=== PATIENT | male | born 1955 | race Caucasian/White ===

== ENCOUNTER 2019-01-31 22:05 | Inpatient (IN) | payer OTHER ==
--- NOTE | 2019-01-31 23:17 | PDOC ---
Attending Attestation - Resident Resident Name: LainezHernando - ED Attending Attestation I have performed the following: I have examined & evaluated the patient, The case was reviewed & discussed with the resident, I agree w/resident's findings & plan - HPI HPI: 02/01/19 02:04 see resident hpi - Physicial Exam PE: 02/01/19 02:04 agree with resident exam - Medical Decision Making 02/01/19 02:05 63-year-old male with upper abdominal pain Ultrasound of the gallbladder shows distention with a gallbladder neck stone as well as wall thickening Patient is a mild leukocytosis Zosyn 3.375 g given in the emergency department Plan for admission to medical service with surgical consult
[2019-01-31] MEDS ORDERED: FAMOTIDINE 20 MG/50 ML IVPB 20 MG/50 ML MG IVPB ONE (23:48)
[2019-01-31] MEDS ORDERED: MAG HYDROX/AL HYDROX/SIMETH -MYLANTA- ORAL SUSPENSION PO ONE (23:49)
[2019-02-01] MEDS ORDERED: MAG HYDROX/AL HYDROX/SIMETH 30 ML UNIT-DOSE CUP ONE (01:08)
[2019-02-01] MEDS ORDERED: FAMOTIDINE 20 MG/50 ML IVPB 20 MG/50 ML MG IVPB ONE (01:08)
[2019-02-01 01:27] LABS: BASO % 0.9 % (0-2.0); EOS % 0.6 % (0-4.5); HEMATOCRIT 41.2 % (35.4-49); HEMOGLOBIN 13.6 GM/dL (11.7-16.9); LYMPH % 12.8 % (8-40); MCH 28.8 pg (25.7-33.7); MCHC 32.9 g/dl (32.0-35.9); MEAN CELL VOLUME 87.6 fl (80-96); MEAN PLT VOLUME 9.3 fl (7.5-11.1); MONO % 7.8 % (3.8-10.2); NEUT % 77.9 % (42.8-82.8); PLATELET COUNT 349 K/MM3 (134-434); RDW 15.5 % (11.9-15.9); WHITE BLOOD COUNT 13.2 K/mm3 (4.0-10.0)
[2019-02-01] MEDS ORDERED: PIPERACILLIN/TAZOB 3.375 GM 3.375 GM in DEXTROSE 5%-WATER - 50 ML IVPB ONE (01:44)
--- NOTE | 2019-02-01 01:45 | PDOC ---
History of Present Illness - General Chief Complaint: Pain Stated Complaint: ABDOMINAL PAIN Time Seen by Provider: 01/31/19 22:59 History Source: Patient, Skiver Blockers Used (OLED-T # [id number]) Exam Limitations: Language Barrier - History of Present Illness Initial Comments: HPI: 63 y/o male presenting to [facility] ER complaining of upper abdominal pain radiating to right flank. Symptoms started around 5pm this afternoon. Unable to describe the nature of the pain. Reports it moves up into his chest but denies metallic taste in mouth. No relief or change with PO intake. Denies nausea/vomiting. Endorses normal BM. No h/o of similar. Medical Hx: - HTN - S/p prostate surgery 6 months ago - ED on [facility] Review of Systems: In addition to that documented in the HPI above, the additional ROS was obtained : Constitutional- Denies fevers or chills Head- Denies vision changes ENMT- Denies sore throat CV- Denies chest pain Resp- Denies SOB GI- Denies vomiting or diarrhea - Denies painful urination MSK- Denies recent trauma Skin- Denies new rashes Neuro- Denies new numbness or tingling or weakness Endocrine- Denies polyuria Heme- Denies bleeding or bruising Physical Examination: Constitutional- Well-developed, well-nourished adult in no acute distress but mild obvious discomfort. Found semi-fowlers on hospital bed. Answered all questions appropriately and completely. Head- Normocephalic. No obvious external signs of trauma. Eyes- Sclerae white. Cardiovascular / Chest- Regular rate and regular rhythm. No murmur, rubs, clicks , or gallops. Peripheral pulses- radial pulses full. Respiratory- Breathing unlabored. Equal chest rise and fall. Clear to auscultation bilaterally. No stridor, no wheezing, no rhonchi. Gastrointestinal- abdomen is tender in RUQ with guarding. Positive Lomax's sign. Globally, abdomen is soft and nondistended. No overlying skin lesions. Post surgical scars in LLQ and RLQ. Neuro- Alert and oriented x4. Moving all four extremities spontaneously. Skin- Warm, dry, and intact. - No R or L CVA tenderness. Psych- Affect- appropriate. Mood- normal. Speech was non-labored, non- pressured. MDM: *Reviewed vital signs, nursing notes, and prior visit documentation (if available). 63 y/o male presenting with RUQ pain radiating to right flank. Afebrile. Vitals unremarkable for hypotension or tachycardia. Physical exam as described above. Ordered Pepcid and Maalox for symptom relief. Biliary U/S revealed distended gallbladder with mild wall thickening and stone noted in neck. LFTs and T. Bili within normal limits. Mild leukocytosis. Ordered Zosyn for abx coverage and LR for maintenance fluid. Will admit pt for IV antibiotics and surgical consult for cholecystitis. Consult placed for Dr. Cain. Pt reassessed. Reports he feels better. 01 Feb 2019 02:38 AM Telephone discussion with resident Dr. Boateng. Verbally appraised of the pts HPI, ED course, and current plan of management. Will admit pt to med/surg for attending Dr. Ortega. Hernando Lainez M.D., PGY2 Emergency Medicine Resident Past History - Past Medical History Allergies/Adverse Reactions: Allergies Allergy/AdvReac Type Severity Reaction Status Date / Time No Known Allergies Allergy Verified 01/31/19 22:12 COPD: No HTN: Yes Other medical history: BPH - Psycho Social/Smoking Cessation Hx Smoking History: Never smoked Hx Alcohol Use: No Drug/Substance Use Hx: No *Physical Exam - Vital Signs Last Vital Signs Temp Pulse Resp BP Pulse Ox 98.2 F 82 19 167/90 97 01/31/19 22:08 01/31/19 22:08 01/31/19 22:08 01/31/19 22:08 01/31/19 22:08 ED Treatment Course - LABORATORY CBC & Chemistry Diagram: 02/01/19 01:18 02/01/19 01:18 - ADDITIONAL ORDERS Additional order review: 02/01/19 01:18 RBC 4.70 MCV 87.6 MCHC 32.9 RDW 15.5 MPV 9.3 Neutrophils % 77.9 Lymphocytes % 12.8 Monocytes % 7.8 Eosinophils % 0.6 Basophils % 0.9 - RADIOLOGY Radiology Studies Ordered: Category Date Time Status ABDOMEN US -LIMITED [US] Stat Ultrasound 02/01/19 23:46 Taken Radiograph Interpretation: RUQ U/S: THIS IS A PRELIMINARY REPORT FROM [facility] [employer] INTERFACE DEVELOPER DATE OF SERVICE: 2019-02-01 00:18:48 IMAGES: 37 EXAM: ABDOMEN US -LIMITED HISTORY: Right upper quadrant pain. COMPARISON: None. FINDINGS: Liver measuring 18.7 cm in length with mild heterogeneous echogenicity. Common bile duct measuring 6.1 mm. Hepatopetal flow noted in the main portal vein. Distended gallbladder, measuring 13.6 cm, with a calculus lodged in the neck of the gallbladder measuring 2.4 cm. Mild gallbladder wall thickening at 3.8 mm. Negative Lomax sign. No pericholecystic fluid. Pancreas and aorta are not visualized due to bowel gas. No ascites. Unremarkable visualized IVC. Right kidney measuring 11.9 x 6.3 x 7.6 cm without evidence of hydronephrosis, masses, or any calculi. IMPRESSION: 1. Distended gallbladder with mild gallbladder wall thickening and gallstone lodged in the neck of the gallbladder and common bile duct at the upper limits of normal in caliber but negative Lomax sign. 2. Mild hepatomegaly with mild hepatic steatosis suggested. THIS DOCUMENT HAS BEEN ELECTRONICALLY SIGNED David Dunn MD 02/01/2019 01:13 EST Discharge - Discharge Information Problems reviewed: Yes Clinical Impression/Diagnosis: Cholecystitis Condition: Stable - Admission Yes - Follow up/Referral - Patient Discharge Instructions - Post Discharge Activity
[2019-02-01 01:54] LABS: LIPASE 130 U/L (73-393)
[2019-02-01 01:55] LABS: ALBUMIN 3.8 g/dl (3.4-5.0); BILIRUBIN,TOTAL 0.4 mg/dL (0.2-1); BLOOD UREA NITROGEN 11.8 mg/dL (7-18); CALCIUM 9.3 mg/dL (8.5-10.1); CREATININE 0.7 mg/dL (0.55-1.3); POTASSIUM 4.5 mmol/L (3.5-5.1); TOT PROT 6.9 g/dl (6.4-8.2)
[2019-02-01] MEDS ORDERED: PIPERACILLIN/TAZOB 3.375 GM 3.375 GM/50 ML BAG IVPB ONE (02:19)
[2019-02-01] MEDS ORDERED: LACTATED RINGERS SOLUTION 1,000 ML/1,000 ML INFUS.BAG IV SCH (02:45)
--- NOTE | 2019-02-01 02:46 | PN ---
Teaching Attending Note Name of Resident: Sunni Boateng ATTENDING PHYSICIAN STATEMENT I saw and evaluated the patient. I reviewed the resident's note and discussed the case with the resident. I agree with the resident's findings and plan as documented. SUBJECTIVE: Patient is a 63 year old man with PMH of HTN and Prostate cancer (s/p prostate surgery 6 months ago) presenting to the ER complaining of upper abdominal pain radiating to right flank. Symptoms started around 5pm this afternoon. Unable to describe the nature of the pain. Reports it moves up into his chest but denies metallic taste in mouth. No relief or change with PO intake. Denies nausea, vomiting, headache, fever, chills, diarrhea, constipation, dysuria, frequency, urgency or hematuria. Denies smoking, alcohol or illicit drug abuse. No recent travels or obvious sick contacts. Has FH of Liver cancer and HTN. OBJECTIVE: Alert Vital Signs Period Temp Pulse Resp BP Sys/Brown Pulse Ox Last 24 Hr 98.2 F 82 19 167/90 97 HEENT: No Jaundice, eye redness or discharge, PERRLA, EOMI. Normocephalic, atraumatic. External ears are normal and hearing is grossly intact. No nasal discharge. Neck: Supple, nontender. No palpable adenopathy or thyromegaly. No JVD Chest: Good effort. Clear to auscultation and percussion. Heart: Regular. No S3, rub or murmur Abdomen: Not distended, soft, RUQ tenderness and no HSM. No rebound or guarding. Normal bowel sounds. Ext: Peripheral pulses intact. No leg edema. Skin: Warm and dry. No petechiae, rash or ecchymosis. Neuro: Alert. Oriented x3. CN 2-12 grossly intact. Sensation grossly intact in all four extremities and DTR are symmetric. Psych: Appropriate mood and affect. Good insight. Current Medications Generic Name Dose Route Start Last Admin Trade Name Freq PRN Reason Stop Dose Admin Lactated Ringer's 1,000 ml in 1,000 mls @ 125 mls/hr 02/01/19 02:45 Lactated Ringers Solution IV ASDIR UMER Abnormal Lab Results 02/01/19 02/01/19 01:18 01:18 WBC 13.2 H Absolute Neuts (auto) 10.3 H Anion Gap 5 L ASSESSMENT AND PLAN: 1. Cholecystitis with choledocholithiasis - Sonogram of the abdomen showed "a) Distended gallbladder with mild gallbladder wall thickening and gallstone lodged in the neck of the gallbladder and common bile duct at the upper limits of normal in caliber but negative Lomax sign, and b) Mild hepatomegaly with mild hepatic steatosis suggested." Patient will be treated with IV Rocephin and IV Flagyl, being kept NPO and getting IV LR. GI and Surgery being consulted. Will get UA, CXR and PT-INR. EKG shows NSR with LVH and no significant ST-T wave changes. 2. Overweight Counseled on the risks associated with being overweight. Will provide patient all the necessary assistance, counseling and positive reinforcement to facilitate weight loss. Consult automobile repair service estimator. 3. Hypertension - Will get a list of his medications from his Pharmacy during the day. If BP still hgh will give amlodipine 5 mg PO qd. Restart suitable outpatient antihypertensive drugs when clinically appropriate. Revise regimen to ensure [id number] excellent BP control and counseling department chair patient on the injurious effects of uncontrolled hypertension. Nonpharmacologic measures to control hypertension like weight loss, salt restriction and exercise discussed. Importance of adherence to treatment regimen and attainment of normotension emphasized. 4. DVT prophylaxis - SCDs for now since he may be going for surgery. 5. Advance directives - Full code
[2019-02-01] MEDS ORDERED: SODIUM CHLORIDE 1,000 ML IV SCH (03:30)
[2019-02-01] MEDS ORDERED: ONDANSETRON 4 MG/2 ML VIAL IVPUSH PRN (03:39)
[2019-02-01] MEDS ORDERED: ACETAMINOPHEN 1000 MG/100 ML VIAL (NON FORMULARY) IVPB PRN (03:40)
[2019-02-01 04:59] LABS: CHOLESTEROL 203 mg/dL (50-200); HDL CHOLESTEROL 50 mg/dL (40-60); LDL CHOLESTEROL (ONLY SJRH) 119 mg/dL (5-100); TRIGLYCERIDES 154 mg/dL (0-150)
--- NOTE | 2019-02-01 05:02 | HP ---
CHIEF COMPLAINT: RUQ abdominal pain PCP: Dr. Fuller @ [facility] HISTORY OF PRESENT ILLNESS: Mr. Lora is a 63 y/o man with a past medical history of HTN and prostatitis who presents to the ED with 1 day of RUQ pain which then radiated towards his chest that started around 4pm today. Per the patient, he has had similar pain in the past however, this is the first time it radiated up towards his chest which is why he came to the ED. The patient described the pain as aching and 7-8/1. He took an aspirin and omeprazole around 6:30 which improved his pain. He did not note anything that made the pain worse. He denied n/v/ fevers/ chills no diarrhea/ constipation or shortness of breath. Swazi speaking only lang interpreter # [id number] ER course was notable for: (1) Gave zosyn 3.75 (2) u/s RUQ which revealed CBD 6.1mm, distended GB 13.6cm, calculus lodged in neck of GB measuring 2.4cm, mild GB wall thickening 3.8, no pericholcystic fluid (3) EKG shows NSR with LVH and no significant ST-T wave changes. Recent Travel: denies PAST MEDICAL HISTORY: HTN and prostatitis PAST SURGICAL HISTORY: R knee surgery 4 years ago, and laprascopic prostate surgery 6 mo ago Social History: Smoking: denies Alcohol: 1 bottle of wine per week Drugs: denies Allergies No Known Allergies Allergy (Verified 01/31/19 22:12) HOME MEDICATIONS: Home Medications Medication Instructions Recorded Amlodipine Besylate 5 mg PO DAILY 02/01/19 Tadalafil 5 mg PO DAILY 02/01/19 REVIEW OF SYSTEMS CONSTITUTIONAL: Absent: fever, chills, diaphoresis, generalized weakness, malaise, loss of appetite, weight change HEENT: Absent: rhinorrhea, nasal congestion, throat pain, throat swelling, difficulty swallowing, mouth swelling, ear pain, eye pain, visual changes CARDIOVASCULAR: RUQ radiating to chest Absent: chest pain, syncope, palpitations, irregular heart rate, lightheadedness , peripheral edema RESPIRATORY: Absent: cough, shortness of breath, dyspnea with exertion, orthopnea, wheezing, stridor, hemoptysis GASTROINTESTINAL: RUQ abdominal pain Absent: , abdominal distension, nausea, vomiting, diarrhea, constipation, melena , hematochezia GENITOURINARY: Absent: dysuria, frequency, urgency, hesitancy, hematuria, flank pain, genital pain MUSCULOSKELETAL: Absent: myalgia, arthralgia, joint swelling, back pain, neck pain SKIN: Absent: rash, itching, pallor HEMATOLOGIC/IMMUNOLOGIC: Absent: easy bleeding, easy bruising, lymphadenopathy, frequent infections ENDOCRINE: Absent: unexplained weight gain, unexplained weight loss, heat intolerance, cold intolerance NEUROLOGIC: Absent: headache, focal weakness or paresthesias, dizziness, unsteady gait, seizure, mental status changes, bladder or bowel incontinence PSYCHIATRIC: Absent: anxiety, depression, suicidal or homicidal ideation, hallucinations. PHYSICAL EXAMINATION Vital Signs - 24 hr 01/31/19 22:08 Temperature 98.2 F Pulse Rate 82 Respiratory 19 Rate Blood Pressure 167/90 O2 Sat by Pulse 97 Oximetry (%) GENERAL: Awake, alert, and fully oriented, in no acute distress. HEAD: Normal with no signs of trauma. EYES: Pupils equal, round and reactive to light, extraocular movements intact, sclera anicteric, conjunctiva clear. No lid lag. EARS, NOSE, THROAT: Ears normal, nares patent, oropharynx clear without exudates. Moist mucous membranes. NECK: Normal range of motion, supple without lymphadenopathy, JVD, or masses. LUNGS: Breath sounds equal, clear to auscultation bilaterally. No wheezes, and no crackles. No accessory muscle use. HEART: Regular rate and rhythm, normal S1 and S2 without murmur ABDOMEN: Soft, nontender, not distended, normoactive bowel sounds, no guarding, no rebound, no masses. Patient only had mild tenderness to deep palpation in RUQ, negative lomax's sign MUSCULOSKELETAL: Normal range of motion at all joints. No bony deformities or tenderness. No CVA tenderness. UPPER EXTREMITIES: 2+ pulses, warm, well-perfused. No cyanosis. No clubbing. No peripheral edema. LOWER EXTREMITIES: 2+ pulses, warm, well-perfused. No calf tenderness. No peripheral edema. NEUROLOGICAL: Cranial nerves II-XII intact. Normal speech. Normal gait. PSYCHIATRIC: Cooperative. Good eye contact. Appropriate mood and affect. SKIN: Warm, dry, normal turgor, no rashes or lesions noted, normal capillary refill. Laboratory Results - last 24 hr 02/01/19 02/01/19 02/01/19 01:18 01:18 01:18 WBC 13.2 H RBC 4.70 Hgb 13.6 Hct 41.2 MCV 87.6 MCH 28.8 MCHC 32.9 RDW 15.5 Plt Count 349 MPV 9.3 Absolute Neuts (auto) 10.3 H Neutrophils % 77.9 Lymphocytes % 12.8 Monocytes % 7.8 Eosinophils % 0.6 Basophils % 0.9 Nucleated RBC % 0 Sodium 140 Potassium 4.5 Chloride 107 Carbon Dioxide 28 Anion Gap 5 L BUN 11.8 Creatinine 0.7 Est GFR (CKD-EPI)AfAm 114.78 Est GFR (CKD-EPI)NonAf 99.03 Random Glucose 90 Calcium 9.3 Total Bilirubin 0.4 AST 25 ALT 37 Alkaline Phosphatase 95 Troponin I < 0.02 Total Protein 6.9 Albumin 3.8 Lipase 130 ASSESSMENT/PLAN: Mr. Lora is a 63 y/o man with a past medical history of HTN and prostatitis who presents to the ED with 1 day of RUQ pain which then radiated towards his chest that started around 4pm today improved with ASA and omeprazole at home. # Cholecystitis with choledocholithiasis- RUQ US with distended gallbladder and mild gallbladder wall thickening and gallstone lodged in the neck of the gallbladder. Common bile duct at the upper limits of normal in caliber. On physical exam the patient had a negative Lomax sign. - GI and surgery both consulted to evaluate patient for ERCP/ possible cholecystectomy - IV rocephin and IV flagyl - NPO until decision about procedure is made - continue IVF - obtain UA, CXR, PT/INR, lipid profile - IV zofran for nausea (QTc 460) - Ofirimev for pain # HTN - Pt uses [facility] will confirm meds in AM and resume as appropriate - If BP still high will give amlodipine 5 mg PO qd. # FEN NS @ 100cc/h replete prn NPO until decision about procedure is made # PPx - SCDs for now pending possible surgery tomorrow # Dispo- admit to med surg, possible procedure tomorrow. Full code Visit type - Emergency Visit Emergency Visit: Yes ED Registration Date: 02/01/19 Care time: The patient presented to the Emergency Department on the above date and was hospitalized for further evaluation of their emergent condition. - New Patient This patient is new to me today: Yes Date on this admission: 02/01/19 - Critical Care Critical Care patient: No ATTENDING PHYSICIAN STATEMENT I saw and evaluated the patient. I reviewed the resident's note and discussed the case with the resident. I agree with the resident's findings and plan as documented. SUBJECTIVE: OBJECTIVE: ASSESSMENT AND PLAN:
[2019-02-01 05:47] VITALS: BMI 28.0
--- NOTE | 2019-02-01 09:13 | CON.GI ---
Consult - History of Present Illness History of Present Illness: GI CONSULT DICTATED NPO / IVF'S C/W ABX SURGERY EVALUATION SEE COMPLETE CONSULT DICTATED - Alcohol/Substance Use Hx Alcohol Use: No - Smoking History Smoking history: Never smoked Home Medications - Allergies Allergies/Adverse Reactions: Allergies Allergy/AdvReac Type Severity Reaction Status Date / Time No Known Allergies Allergy Verified 01/31/19 22:12 - Home Medications Home Medications: Ambulatory Orders Amlodipine Besylate 5 mg PO DAILY 02/01/19 Tadalafil 5 mg PO DAILY 02/01/19 Physical Exam-GI Vital Signs: Vital Signs Temperature 98.1 F 02/01/19 09:10 Pulse Rate 65 02/01/19 09:10 Respiratory Rate 20 02/01/19 09:10 Blood Pressure 143/72 02/01/19 09:10 O2 Sat by Pulse Oximetry (%) 98 02/01/19 04:30 Labs: CBC, BMP 02/01/19 01:18 02/01/19 01:18
[2019-02-01] MEDS ORDERED: cefTRIAXone SODIUM 1 GM VIAL ONE (09:58)
[2019-02-01] MEDS ORDERED: DEXTROSE 5%-WATER - 50 ML IVPB ONE (09:59)
[2019-02-01] MEDS: DEXTROSE 5%-NORMAL SALINE 1,000 ML IV SCH ×2 (10:02→22:00)
[2019-02-01] MEDS: CEFTRIAXONE 1 GM in DEXTROSE 5%-WATER - 50 ML IVPB SCH (10:03)
--- NOTE | 2019-02-01 11:04 | EKG ---
Test Reason : Blood Pressure : / mmHG Vent. Rate : 081 BPM Atrial Rate : 081 BPM P-R Int : 154 ms QRS Dur : 118 ms QT Int : 396 ms P-R-T Axes : 039 -05 051 degrees QTc Int : 460 ms NORMAL SINUS RHYTHM LEFT VENTRICULAR HYPERTROPHY WITH QRS WIDENING ABNORMAL ECG NO PREVIOUS ECGS AVAILABLE Confirmed by Stiven Guaman MD ([id number]) on 02/01/2019 11:04:20 AM Referred By: Confirmed By:Stiven Guaman MD
[2019-02-01 11:16] LABS: BASO % 1.1 % (0-2.0); EOS % 1.9 % (0-4.5); HEMOGLOBIN 13.7 GM/dL (11.7-16.9); LYMPH % 13.5 % (8-40); MCH 28.5 pg (25.7-33.7); MCHC 32.7 g/dl (32.0-35.9); MEAN CELL VOLUME 87.3 fl (80-96); MONO % 9.3 % (3.8-10.2); NEUT % 74.2 % (42.8-82.8); PLATELET COUNT 324 K/MM3 (134-434); RBC 4.81 M/mm3 (4.00-5.60); RDW 15.2 % (11.9-15.9); WHITE BLOOD COUNT 11.5 K/mm3 (4.0-10.0)
[2019-02-01 11:22] LABS: INR 1.05 (0.83-1.09); PROTHROMBIN TIME (PATIENT) 12.4 SEC (9.7-13.0)
[2019-02-01 11:53] LABS: ALBUMIN 3.6 g/dl (3.4-5.0); BILIRUBIN,TOTAL 0.5 mg/dL (0.2-1); CALCIUM 9.2 mg/dL (8.5-10.1); CREATININE 0.7 mg/dL (0.55-1.3); PHOSPHOROUS 2.6 mg/dL (2.5-4.9); POTASSIUM 3.7 mmol/L (3.5-5.1); TOT PROT 6.6 g/dl (6.4-8.2)
[2019-02-01 12:03] LABS: URINE APPEARANCE CLEAR; URINE BILIRUBIN NEGATIVE (NEGATIVE); URINE COLOR YELLOW; URINE GLUCOSE (UA) NEGATIVE (NEGATIVE); URINE KETONE NEGATIVE (NEGATIVE); URINE LEUK ESTERASE NEGATIVE (NEGATIVE); URINE NITRITE NEGATIVE (NEGATIVE); URINE PROTEIN NEGATIVE (NEGATIVE); URINE UROBILINOGEN 0.2 mg/dL (0.2-1.0)
--- NOTE | 2019-02-01 13:34 | PN ---
Physical Exam: SUBJECTIVE: Patient seen and examined NAEON. Endorses improvement of epigastric abdominal pain. Denies nausea, vomiting. Denies h/o EtOH-related tremors Interpretation provided by [facility] Crisis Counselor. OBJECTIVE: Vital Signs Period Temp Pulse Resp BP Sys/Brown Pulse Ox Last 24 Hr 97.6 F-98.2 F 65-84 18-20 139-167/72-90 97-98 GENERAL: The patient is awake, alert, and fully oriented. NAD HEAD: Normal with no signs of trauma. EYES: sclera anicteric, conjunctiva clear. ENT: Ears normal, nares patent, oropharynx clear without exudates, moist mucous membranes. NECK: Trachea midline, full range of motion, supple. LUNGS: Breath sounds equal, clear to auscultation bilaterally, no wheezes, no crackles, no accessory muscle use. HEART: Regular rate and rhythm, S1, S2 without murmur, rub or gallop. ABDOMEN: Multiple well-healed laparoscopic incision sites in the abd. Soft, nontender, nondistended, no guarding, no rebound. Neg Lomax's EXTREMITIES: 2+ pulses, warm, well-perfused, no edema. NEUROLOGICAL: Normal speech, gait not observed. PSYCH: Normal mood, normal affect. SKIN: Warm, dry, normal turgor, no rashes or lesions noted Laboratory Results - last 24 hr 02/01/19 02/01/19 02/01/19 01:18 01:18 01:18 WBC 13.2 H RBC 4.70 Hgb 13.6 Hct 41.2 MCV 87.6 MCH 28.8 MCHC 32.9 RDW 15.5 Plt Count 349 MPV 9.3 Absolute Neuts (auto) 10.3 H Neutrophils % 77.9 Lymphocytes % 12.8 Monocytes % 7.8 Eosinophils % 0.6 Basophils % 0.9 Nucleated RBC % 0 PT with INR INR Sodium 140 Potassium 4.5 Chloride 107 Carbon Dioxide 28 Anion Gap 5 L BUN 11.8 Creatinine 0.7 Est GFR (CKD-EPI)AfAm 114.78 Est GFR (CKD-EPI)NonAf 99.03 Random Glucose 90 Calcium 9.3 Phosphorus Magnesium Total Bilirubin 0.4 AST 25 ALT 37 Alkaline Phosphatase 95 Troponin I < 0.02 Total Protein 6.9 Albumin 3.8 Triglycerides Cholesterol Total LDL Cholesterol HDL Cholesterol Lipase 130 Urine Color Urine Appearance Urine pH Ur Specific Datil Urine Protein Urine Glucose (UA) Urine Ketones Urine Blood Urine Nitrite Urine Bilirubin Urine Urobilinogen Ur Leukocyte Esterase 02/01/19 02/01/19 02/01/19 04:08 10:45 11:00 WBC 11.5 H RBC 4.81 Hgb 13.7 Hct 42.0 MCV 87.3 MCH 28.5 MCHC 32.7 RDW 15.2 Plt Count 324 MPV 9.0 Absolute Neuts (auto) 8.5 H Neutrophils % 74.2 Lymphocytes % 13.5 Monocytes % 9.3 Eosinophils % 1.9 D Basophils % 1.1 Nucleated RBC % 0 PT with INR INR Sodium Potassium Chloride Carbon Dioxide Anion Gap BUN Creatinine Est GFR (CKD-EPI)AfAm Est GFR (CKD-EPI)NonAf Random Glucose Calcium Phosphorus Magnesium Total Bilirubin AST ALT Alkaline Phosphatase Troponin I Total Protein Albumin Triglycerides 154 H Cholesterol 203 H Total LDL Cholesterol 119 H HDL Cholesterol 50 Lipase Urine Color Yellow Urine Appearance Clear Urine pH 8.0 Ur Specific Datil 1.009 L Urine Protein Negative Urine Glucose (UA) Negative Urine Ketones Negative Urine Blood Negative Urine Nitrite Negative Urine Bilirubin Negative Urine Urobilinogen 0.2 Ur Leukocyte Esterase Negative 02/01/19 02/01/19 11:00 11:00 WBC RBC Hgb Hct MCV MCH MCHC RDW Plt Count MPV Absolute Neuts (auto) Neutrophils % Lymphocytes % Monocytes % Eosinophils % Basophils % Nucleated RBC % PT with INR 12.40 INR 1.05 Sodium 140 Potassium 3.7 Chloride 106 Carbon Dioxide 28 Anion Gap 6 L BUN 8.0 Creatinine 0.7 Est GFR (CKD-EPI)AfAm 114.78 Est GFR (CKD-EPI)NonAf 99.03 Random Glucose 103 Calcium 9.2 Phosphorus 2.6 Magnesium 2.0 Total Bilirubin 0.5 AST 19 ALT 33 Alkaline Phosphatase 73 Troponin I Total Protein 6.6 Albumin 3.6 Triglycerides Cholesterol Total LDL Cholesterol HDL Cholesterol Lipase Urine Color Urine Appearance Urine pH Ur Specific Datil Urine Protein Urine Glucose (UA) Urine Ketones Urine Blood Urine Nitrite Urine Bilirubin Urine Urobilinogen Ur Leukocyte Esterase Active Medications Generic Name Dose Route Start Last Admin Trade Name Freq PRN Reason Stop Dose Admin Acetaminophen 1,000 mg 02/01/19 03:40 Ofirmev Injection - IVPB Q6H PRN PAIN LEVEL 6-10 Ceftriaxone Sodium 1 gm/ 50 mls @ 100 mls/hr 02/01/19 10:00 02/01/19 10:03 Dextrose IVPB 100 mls/hr DAILY UMER Administration Protocol Metronidazole 500 mg in 100 mls @ 100 mls/hr 02/01/19 03:45 02/01/19 12:20 Flagyl 500mg Premixed Ivpb - IVPB 100 mls/hr Q8H-IV UMER Administration Dextrose/Sodium Chloride 1,000 mls @ 100 mls/hr 02/01/19 07:30 02/01/19 10:02 D5-Ns - IV 100 mls/hr ASDIR UMER Administration Ondansetron HCl 4 mg 02/01/19 03:39 Zofran Injection IVPUSH Q4H PRN NAUSEA AND/OR VOMITING ASSESSMENT/PLAN: 63M w/ pmh of HTN, prostate Ca(s/p robo prostatectomy ~6mo prior), cholelithais who presents to the ED with 1 day of RUQ pain which then radiated towards his chest that started around 4pm today improved with ASA and omeprazole at home. In ED, received mylanta, pepcid, zosyn. RUQ US showing large GB stone w/in GB neck, neg sonographic Lomax's, neg signs of acute cholecystitis. # Acute Cholecystitis vs Symptomatic Cholelithiasis > US RUQ(02/01/19): large stone w/in GB neck, neg sonographic Lomax's, no evid of acute cholecystitis - GI consulted - Surg consulted - s/p ED zosyn - IV rocephin and IV flagyl - NPO + mIVF - IV zofran for nausea (QTc 460) - Ofirimev for pain # HTN --normotensive - If BP still high will give amlodipine 5 mg PO qd. # FEN D5NS @ 100cc/h replete prn NPO # PPx - SCDs for now pending possible surgery tomorrow # Dispo- medsurg. Full code Visit type - Emergency Visit Emergency Visit: No - New Patient This patient is new to me today: No - Critical Care Critical Care patient: No ATTENDING PHYSICIAN STATEMENT I saw and evaluated the patient. I reviewed the resident's note and discussed the case with the resident. I agree with the resident's findings and plan as documented. SUBJECTIVE: OBJECTIVE: ASSESSMENT AND PLAN:
--- NOTE | 2019-02-01 14:06 | PN ---
Teaching Attending Note Name of Resident: Jossue Arita ATTENDING PHYSICIAN STATEMENT I saw and evaluated the patient. I reviewed the resident's note and discussed the case with the resident. I agree with the resident's findings and plan as documented. SUBJECTIVE: Abdominal pain much improved. No nausea/vomiting/diarrhea/melena/ hematochezia. No fever/chills. OBJECTIVE: Afebrle, Hemopdynamically stable. Last Vital Signs Temp Pulse Resp BP Pulse Ox 98.1 F 65 20 143/72 98 02/01/19 09:10 02/01/19 09:10 02/01/19 09:10 02/01/19 09:10 02/01/19 04:30 HEENT - Atraumatic, normocephalic. heart - S1, S2, RRR Lungs - clear to auscultation Abdomen -Soft, non-tender. Bowel Sounds normal. Extremities - no edema, no calf tenderness. Laboratory Results - last 24 hr 02/01/19 02/01/19 02/01/19 01:18 01:18 01:18 WBC 13.2 H RBC 4.70 Hgb 13.6 Hct 41.2 MCV 87.6 MCH 28.8 MCHC 32.9 RDW 15.5 Plt Count 349 MPV 9.3 Absolute Neuts (auto) 10.3 H Neutrophils % 77.9 Lymphocytes % 12.8 Monocytes % 7.8 Eosinophils % 0.6 Basophils % 0.9 Nucleated RBC % 0 PT with INR INR Sodium 140 Potassium 4.5 Chloride 107 Carbon Dioxide 28 Anion Gap 5 L BUN 11.8 Creatinine 0.7 Est GFR (CKD-EPI)AfAm 114.78 Est GFR (CKD-EPI)NonAf 99.03 Random Glucose 90 Calcium 9.3 Phosphorus Magnesium Total Bilirubin 0.4 AST 25 ALT 37 Alkaline Phosphatase 95 Troponin I < 0.02 Total Protein 6.9 Albumin 3.8 Triglycerides Cholesterol Total LDL Cholesterol HDL Cholesterol Lipase 130 Urine Color Urine Appearance Urine pH Ur Specific [place] Urine Protein Urine Glucose (UA) Urine Ketones Urine Blood Urine Nitrite Urine Bilirubin Urine Urobilinogen Ur Leukocyte Esterase 02/01/19 02/01/19 02/01/19 04:08 10:45 11:00 WBC 11.5 H RBC 4.81 Hgb 13.7 Hct 42.0 MCV 87.3 MCH 28.5 MCHC 32.7 RDW 15.2 Plt Count 324 MPV 9.0 Absolute Neuts (auto) 8.5 H Neutrophils % 74.2 Lymphocytes % 13.5 Monocytes % 9.3 Eosinophils % 1.9 D Basophils % 1.1 Nucleated RBC % 0 PT with INR INR Sodium Potassium Chloride Carbon Dioxide Anion Gap BUN Creatinine Est GFR (CKD-EPI)AfAm Est GFR (CKD-EPI)NonAf Random Glucose Calcium Phosphorus Magnesium Total Bilirubin AST ALT Alkaline Phosphatase Troponin I Total Protein Albumin Triglycerides 154 H Cholesterol 203 H Total LDL Cholesterol 119 H HDL Cholesterol 50 Lipase Urine Color Yellow Urine Appearance Clear Urine pH 8.0 Ur Specific [place] 1.009 L Urine Protein Negative Urine Glucose (UA) Negative Urine Ketones Negative Urine Blood Negative Urine Nitrite Negative Urine Bilirubin Negative Urine Urobilinogen 0.2 Ur Leukocyte Esterase Negative 02/01/19 02/01/19 11:00 11:00 WBC RBC Hgb Hct MCV MCH MCHC RDW Plt Count MPV Absolute Neuts (auto) Neutrophils % Lymphocytes % Monocytes % Eosinophils % Basophils % Nucleated RBC % PT with INR 12.40 INR 1.05 Sodium 140 Potassium 3.7 Chloride 106 Carbon Dioxide 28 Anion Gap 6 L BUN 8.0 Creatinine 0.7 Est GFR (CKD-EPI)AfAm 114.78 Est GFR (CKD-EPI)NonAf 99.03 Random Glucose 103 Calcium 9.2 Phosphorus 2.6 Magnesium 2.0 Total Bilirubin 0.5 AST 19 ALT 33 Alkaline Phosphatase 73 Troponin I Total Protein 6.6 Albumin 3.6 Triglycerides Cholesterol Total LDL Cholesterol HDL Cholesterol Lipase Urine Color Urine Appearance Urine pH Ur Specific [place] Urine Protein Urine Glucose (UA) Urine Ketones Urine Blood Urine Nitrite Urine Bilirubin Urine Urobilinogen Ur Leukocyte Esterase Current Medications Generic Name Dose Route Start Last Admin Trade Name Freq PRN Reason Stop Dose Admin Acetaminophen 1,000 mg 02/01/19 03:40 Ofirmev Injection - IVPB Q6H PRN PAIN LEVEL 6-10 Ceftriaxone Sodium 1 gm/ 50 mls @ 100 mls/hr 02/01/19 10:00 02/01/19 10:03 Dextrose IVPB 100 mls/hr DAILY UMER Administration Protocol Metronidazole 500 mg in 100 mls @ 100 mls/hr 02/01/19 03:45 02/01/19 12:20 Flagyl 500mg Premixed Ivpb - IVPB 100 mls/hr Q8H-IV UMER Administration Dextrose/Sodium Chloride 1,000 mls @ 100 mls/hr 02/01/19 07:30 02/01/19 10:02 D5-Ns - IV 100 mls/hr ASDIR UMER Administration Ondansetron HCl 4 mg 02/01/19 03:39 Zofran Injection IVPUSH Q4H PRN NAUSEA AND/OR VOMITING Home Medications Medication Instructions Recorded Amlodipine Besylate 5 mg PO DAILY 02/01/19 Tadalafil 5 mg PO DAILY 02/01/19 ASSESSMENT/PLAN: 63 year old male with history of HTN, Prostate Ca s/p Prostatectomy, cholelithiasis, presents with 1 day history of RUQ abdominal pain, without nausea/vomiting/fever/chills/diarrhea. RUQ Abdo US - Cholelithoasis, distended GB 13.6cm, calculus lodged in neck of GB measuring 2.4cm, mild GB wall thickening 3.8, no pericholcystic fluid. 1. Biliary Colic secondary to Cholelithiasis - appears to be resolved. Afebrile, mild leukocytosis, LFTs normal. On IV ceftriaxone/Flagyl empirically for possible cholecystitis. Symptoms improved ?passed stone GI and Surgery consulted for further Ix/intervention. NPO/IV hydration. GI/Sx eval pending. 2, HTN - normally on Norvasc, currently held. DVT Px - Heparin SQ
--- NOTE | 2019-02-01 16:38 | CONS ---
GASTROINTESTINAL CONSULTATION DATE OF CONSULTATION: DATE OF DICTATION: 02/01/2019 HISTORY OF PRESENT ILLNESS: The patient is a 63-year-old man with a past medical history of hypertension and prostatitis who presented to the emergency room with complaint of right upper quadrant and epigastric abdominal pain which began at 5 p.m. the day prior to his admission. The patient states he has had this pain intermittently over the past couple of months, but did not seek medical attention at the time. He denies any nausea, vomiting, diarrhea, constipation, fevers, chills, change in his bowel habit, melena or hematochezia. He had a colonoscopy within the past 10 years. He has never had an upper endoscopy in the past. PAST MEDICAL AND SURGICAL HISTORY: As listed in the HPI with the addition of right knee surgery, laparoscopic prostate surgery 6 months ago. SOCIAL HISTORY: Does not smoke. He does drink socially. Drugs: Denies. ALLERGIES: No known drug allergies. HOME MEDICATIONS: Reviewed. Include amlodipine and tadalafil. REVIEW OF SYSTEMS: As per the HPI. PHYSICAL EXAMINATION: Vital Signs: Temperature 98, pulse 55, blood pressure 120/73, respiratory rate 12, oxygen saturation 98% on room air. General: In no acute distress. HEENT: Anicteric sclera. Cardiovascular: S1, S2. Regular rate and rhythm. Lungs: Bilaterally clear to auscultation. Abdomen: Soft and nontender. Extremities: No edema. LABORATORIES: White blood cell count on admission was 13, currently 11, hemoglobin 13 and hematocrit 42, MCV 87, platelet count 324. INR 1. Sodium 140, potassium 3.7, BUN 8, creatinine 0.7, glucose 103. Total bilirubin 0.5, AST 19, ALT 33, alkaline phosphatase 73, lipase 130. IMAGING: Abdominal ultrasound was performed and revealed a large calculus within the neck of the gallbladder; there is a negative Lomax sign sonographically; no evidence of intra and extrahepatic biliary ductal dilatation; the liver is enlarged, 18.7 cm, in craniocaudal dimension; diffuse fatty infiltration; no discrete intrahepatic masses are identified; pancreas is poorly visualized. IMPRESSION: Gallbladder neck stone without any sign of Mirizzi syndrome. Liver tests are within normal limits and there is no evidence of biliary ductal dilatation. RECOMMENDATION: N.p.o. IV fluids. Continue him on antibiotics. He is currently on ceftriaxone and metronidazole. Panculture. Surgery evaluation for potential cholecystectomy. DO BURT MCCAIN/[id number]
[2019-02-01] MEDS: HEPARIN NA (PORCINE) 5,000 UNITS/ML 1ML VIAL SQ SCH (21:58)
--- NOTE | 2019-02-01 22:26 | CONSULT ---
Consult Consult Specialty:: General Surgery Reason for Consultation:: symptomatic cholelithiasis - History of Present Illness Chief Complaint: abdominal pain History of Present Illness: 63 yo male PMH HTN and prostatitis who presents to the ED with 1 day of RUQ pain which then radiated towards his chest that started around 4pm today. Per the patient, he has had similar pain in the past however, this is the first time it radiated up towards his chest which is why he came to the ED. The patient described the pain as aching and 7-8/1. He took an aspirin and omeprazole around 6:30 which improved his pain. He did not note anything that made the pain worse. He denied n/v/ fevers/ chills no diarrhea/ constipation or shortness of breath. we were called to assess. - History Source History Provided By: Patient, Medical Record Limitations to Obtaining History: No Limitations - Alcohol/Substance Use Hx Alcohol Use: No - Smoking History Smoking history: Never smoked Home Medications - Allergies Allergies/Adverse Reactions: Allergies Allergy/AdvReac Type Severity Reaction Status Date / Time No Known Allergies Allergy Verified 01/31/19 22:12 - Home Medications Home Medications: Ambulatory Orders Amlodipine Besylate 5 mg PO DAILY 02/01/19 Tadalafil 5 mg PO DAILY 02/01/19 Review of Systems - Review of Systems Constitutional: denies: Chills, Fever Eyes: denies: Blind Spots, Recent Change in Vision HENT: denies: Difficult Swallowing, Throat Pain Neck: denies: Decreased ROM, Pain on Movement Cardiovascular: denies: Chest Pain, Palpitations Respiratory: denies: Cough, SOB Gastrointestinal: reports: Abdominal Pain, Indigestion, Nausea. denies: Constipation, Diarrhea Genitourinary: denies: Burning, Discharge, Dysuria Breasts: reports: No Symptoms Reported. denies: Pain Neurological: denies: Seizure, Syncope Endocrine: denies: Unexplained Weight Gain, Unexplained Weight Loss Hematology/Lymphatic: denies: Easily Bruised, Excessive Bleeding Psychiatric: denies: Anxiety, Depression Physical Exam Vital Signs: Vital Signs Temperature 98.2 F 02/01/19 20:55 Pulse Rate 51 L 02/01/19 20:55 Respiratory Rate 18 02/01/19 20:55 Blood Pressure 122/77 02/01/19 20:55 O2 Sat by Pulse Oximetry (%) 98 02/01/19 20:58 Constitutional: Yes: Well Nourished, No Distress, Calm Eyes: Yes: Conjunctiva Clear, EOM Intact HENT: Yes: Atraumatic, Normocephalic Neck: Yes: Supple, Trachea Midline Cardiovascular: Yes: Regular Rate and Rhythm, S1, S2 Respiratory: Yes: Regular, CTA Bilaterally Gastrointestinal: Yes: Normal Bowel Sounds, Soft. No: Tenderness, Tenderness, Epigastrium ...Rectal Exam: Yes: Deferred Renal/: No: CVA Tenderness - Left, CVA Tenderness - Right Musculoskeletal: No: Muscle Pain, Muscle Weakness Extremities: No: Cool, Cyanosis Edema: No Peripheral Pulses WNL: Yes Integumentary: No: Jaundice, Rash Neurological: Yes: Alert, Oriented Psychiatric: Yes: Alert, Oriented Labs: CBC, BMP 02/01/19 11:00 02/01/19 11:00 Imaging - Results Chest X-ray: Report Reviewed, Image Reviewed Ultrasound: Report Reviewed, Image Reviewed EKG: Report Reviewed, Image Reviewed Problem List - Problems (1) Biliary colic symptom Assessment/Plan: 63 yo male with RUQ abdominal pain now resolved. He was offered cholecystectomy but was not interested in considering becuause he felt much better and was hesitant following his prostate surgery. Diet as tolerated adequat analgesia Low fat diet He can followup with surgery if he changes his mind Thank you for the opportunity to participate in the care of this patient. Problems reviewed: Yes Code(s): K80.50 - CALCULUS OF BILE DUCT W/O CHOLANGITIS OR CHOLECYST W/O OBST (2) Indigestion Problems reviewed: Yes Code(s): K30 - FUNCTIONAL DYSPEPSIA (3) RUQ abdominal pain Problems reviewed: Yes Code(s): R10.11 - RIGHT UPPER QUADRANT PAIN (4) Prostate cancer Problems reviewed: Yes Code(s): C61 - MALIGNANT NEOPLASM OF PROSTATE (5) HTN (hypertension) Problems reviewed: Yes Code(s): I10 - ESSENTIAL (PRIMARY) HYPERTENSION Qualifiers: Hypertension type: essential hypertension Qualified Code(s): I10 - Essential (primary) hypertension
[2019-02-02] MEDS: HEPARIN NA (PORCINE) 5,000 UNITS/ML 1ML VIAL SQ SCH ×2 (06:27→14:38)
[2019-02-02] MEDS: DEXTROSE 5%-NORMAL SALINE 1,000 ML IV SCH (07:30)
[2019-02-02 08:43] LABS: HEMATOCRIT 39.8 % (35.4-49); HEMOGLOBIN 13.6 GM/dL (11.7-16.9); MCH 29.6 pg (25.7-33.7); MCHC 34.2 g/dl (32.0-35.9); MEAN CELL VOLUME 86.7 fl (80-96); MEAN PLT VOLUME 8.9 fl (7.5-11.1); PLATELET COUNT 298 K/MM3 (134-434); RBC 4.59 M/mm3 (4.00-5.60); RDW 15.3 % (11.9-15.9); WHITE BLOOD COUNT 7.6 K/mm3 (4.0-10.0)
[2019-02-02] MEDS ORDERED: DEXTROSE 5%-WATER - 50 ML IVPB ONE (09:08)
[2019-02-02] MEDS ORDERED: cefTRIAXone SODIUM 1 GM VIAL ONE (09:08)
[2019-02-02] MEDS: CEFTRIAXONE 1 GM in DEXTROSE 5%-WATER - 50 ML IVPB SCH (09:15)
[2019-02-02 09:29] LABS: ALBUMIN 3.2 g/dl (3.4-5.0); BILIRUBIN,TOTAL 0.6 mg/dL (0.2-1); BLOOD UREA NITROGEN 7.4 mg/dL (7-18); CREATININE 0.7 mg/dL (0.55-1.3); MAGNESIUM 2.1 mg/dL (1.8-2.4); POTASSIUM 3.9 mmol/L (3.5-5.1); TOT PROT 6.2 g/dl (6.4-8.2)
[2019-02-02] MEDS ORDERED: amLODIPine BESYLATE 5 MG TABLET (FP) PO SCH (10:00)
--- NOTE | 2019-02-02 12:02 | PN ---
Teaching Attending Note Name of Resident: Azucena Jimenez ATTENDING PHYSICIAN STATEMENT I saw and evaluated the patient. I reviewed the resident's note and discussed the case with the resident. I agree with the resident's findings and plan as documented. SUBJECTIVE: Abdominal pain much improved. No nausea/vomiting/diarrhea/melena/ hematochezia. No fever/chills. OBJECTIVE: Afebrle, Hemopdynamically stable. Last Vital Signs Temp Pulse Resp BP Pulse Ox 98.2 F 63 20 128/81 98 02/02/19 09:14 02/02/19 10:53 02/02/19 10:53 02/02/19 10:53 02/01/19 20:58 heart - S1, S2, RRR Lungs - clear to auscultation Abdomen -Soft, non-tender. Bowel Sounds normal. Lomax negative Extremities - no edema, no calf tenderness. Laboratory Results - last 24 hr 02/01/19 02/02/19 02/02/19 10:45 08:15 08:15 WBC 7.6 RBC 4.59 Hgb 13.6 Hct 39.8 MCV 86.7 MCH 29.6 MCHC 34.2 RDW 15.3 Plt Count 298 MPV 8.9 Sodium 141 Potassium 3.9 Chloride 109 H Carbon Dioxide 27 Anion Gap 6 L BUN 7.4 Creatinine 0.7 Est GFR (CKD-EPI)AfAm 114.78 Est GFR (CKD-EPI)NonAf 99.03 Random Glucose 101 Calcium 9.0 Phosphorus 3.0 Magnesium 2.1 Total Bilirubin 0.6 AST 19 ALT 34 Alkaline Phosphatase 68 Total Protein 6.2 L Albumin 3.2 L Urine Color Yellow Urine Appearance Clear Urine pH 8.0 Ur Specific [place] 1.009 L Urine Protein Negative Urine Glucose (UA) Negative Urine Ketones Negative Urine Blood Negative Urine Nitrite Negative Urine Bilirubin Negative Urine Urobilinogen 0.2 Ur Leukocyte Esterase Negative Current Medications Generic Name Dose Route Start Last Admin Trade Name Freq PRN Reason Stop Dose Admin Acetaminophen 1,000 mg 02/01/19 03:40 Ofirmev Injection - IVPB Q6H PRN PAIN LEVEL 6-10 Amlodipine Besylate 5 mg 02/02/19 10:00 02/02/19 10:55 Norvasc - PO 5 mg DAILY UMER Administration Heparin Sodium (Porcine) 5,000 unit 02/01/19 22:00 02/02/19 06:27 Heparin - SQ 5,000 unit TID UMER Administration Ceftriaxone Sodium 1 gm/ 50 mls @ 100 mls/hr 02/01/19 10:00 02/02/19 09:15 Dextrose IVPB 100 mls/hr DAILY UMER Administration Protocol Metronidazole 500 mg in 100 mls @ 100 mls/hr 02/01/19 03:45 02/02/19 10:55 Flagyl 500mg Premixed Ivpb - IVPB 100 mls/hr Q8H-IV UMER Administration Dextrose/Sodium Chloride 1,000 mls @ 100 mls/hr 02/01/19 07:30 02/02/19 07:30 D5-Ns - IV Not Given ASDIR UMER Ondansetron HCl 4 mg 02/01/19 03:39 Zofran Injection IVPUSH Q4H PRN NAUSEA AND/OR VOMITING Home Medications Medication Instructions Recorded Amlodipine Besylate 5 mg PO DAILY 02/01/19 Tadalafil 5 mg PO DAILY 02/01/19 ASSESSMENT/PLAN: 63 year old male with history of HTN, Prostate Ca s/p Prostatectomy, cholelithiasis, presents with 1 day history of RUQ abdominal pain, without nausea/vomiting/fever/chills/diarrhea. RUQ Abdo US - Cholelithoasis, mildly distended GB, calculus lodged in neck of GB , no pericholcystic fluid. Hepatomegaly/fatty liver. 1. Biliary Colic secondary to Cholelithiasis - appears to be resolved. Afebrile, mild leukocytosis resolved, LFTs normal. On IV ceftriaxone/Flagyl empirically for possible cholecystitis, though unlikely given clinical picture and imaging. Will await GI/Surgery input regarding requirement for further Abx. Symptoms improved ?passed stone GI and Surgery consulted for further Ix/intervention - patient declines cholecystectomy. Will advance diet and monitor response/tolerance. If tolerates diet, likely discharge today with GI and Surgery out-patient follow ups. 2, HTN - resumed on Norvasc DVT Px - Heparin SQ
--- NOTE | 2019-02-02 13:43 | PN.GI ---
GI Progress Note Subjective: Pt seen/examined at bedside, feeling well, ambulating in room, denies further abdominal pain. Moving bowels, denies n/v. - Objective Vital Signs: Vital Signs Temperature 98.2 F 02/02/19 09:14 Pulse Rate 63 02/02/19 10:53 Respiratory Rate 20 02/02/19 10:53 Blood Pressure 128/81 02/02/19 10:53 O2 Sat by Pulse Oximetry (%) 98 02/01/19 20:58 Constitutional: Well Nourished, No Distress, Calm Cardiovascular: Yes: WNL, Regular Rate and Rhythm Respiratory: Yes: WNL, Regular, CTA Bilaterally ...Palpate: Yes: Other (Abd soft, nt, nd) Labs: CBC, BMP 02/02/19 08:15 02/02/19 08:15 INR, PTT INR 1.05 (0.83-1.09) 02/01/19 11:00 Problem List - Problems (1) RUQ abdominal pain Assessment/Plan: 63yo male h/o HTN presenting with upper abdominal pain with US revealing a stone in the gallbladder neck. Abdominal pain resolved. LFTs normal. Pt anxious to go home. -No urgent indication for ERCP as pt now asymptomatic with normal LFTs -Pt seen by surgery and declined at this time -low fat diet as tolerated -If abdominal pain recurs or LFTs increase recommend MRCP -Pending dispo recommend outpt GI follow up Code(s): R10.11 - RIGHT UPPER QUADRANT PAIN
[2019-02-02 14:18] VITALS: BP 131/78; PULSE 61; TEMP 98.5
--- NOTE | 2019-02-02 18:31 | DS ---
Physical Exam: SUBJECTIVE: Patient seen and examined OBJECTIVE: Vital Signs Period Temp Pulse Resp BP Sys/Brown Pulse Ox Last 24 Hr 98.2 F-98.8 F 51-63 18-20 122-133/65-87 98 PHYSICAL EXAM GENERAL: The patient is awake, alert, and fully oriented, in no acute distress. HEAD: Normal with no signs of trauma. EYES: PERRL, extraocular movements intact, sclera anicteric, conjunctiva clear. ENT: Ears normal, nares patent, oropharynx clear without exudates, moist mucous membranes. NECK: Trachea midline, full range of motion, supple. LUNGS: Breath sounds equal, clear to auscultation bilaterally, no wheezes, no crackles, no accessory muscle use. HEART: Regular rate and rhythm, S1, S2 without murmur, rub or gallop. ABDOMEN: Soft, nontender, nondistended, normoactive bowel sounds, no guarding, no rebound, no hepatosplenomegaly, no masses. EXTREMITIES: 2+ pulses, warm, well-perfused, no edema. NEUROLOGICAL: Cranial nerves II through XII grossly intact. Normal speech, gait not observed. PSYCH: Normal mood, normal affect. SKIN: Warm, dry, normal turgor, no rashes or lesions noted. LABS Laboratory Results - last 24 hr 02/02/19 02/02/19 08:15 08:15 WBC 7.6 RBC 4.59 Hgb 13.6 Hct 39.8 MCV 86.7 MCH 29.6 MCHC 34.2 RDW 15.3 Plt Count 298 MPV 8.9 Sodium 141 Potassium 3.9 Chloride 109 H Carbon Dioxide 27 Anion Gap 6 L BUN 7.4 Creatinine 0.7 Est GFR (CKD-EPI)AfAm 114.78 Est GFR (CKD-EPI)NonAf 99.03 Random Glucose 101 Calcium 9.0 Phosphorus 3.0 Magnesium 2.1 Total Bilirubin 0.6 AST 19 ALT 34 Alkaline Phosphatase 68 Total Protein 6.2 L Albumin 3.2 L HOSPITAL COURSE: Date of Admission:02/01/19 Date of Discharge: 02/02/19 Discharge Summary Problems reviewed: Yes Reason For Visit: CHOLECYSTITIS Condition: Stable - Instructions Diet, Activity, Other Instructions: You were evaluated in the ED for severe abdominal pain. Imaging showed a large gallstone. You were given antibiotics. Your abdominal pain resolved. You were evaluated by surgery and gastroenterology and recommended no immediate intervention at this time. Please note that if your abdominal pain recurs, see your primary care doctor immediately or go to the ED for further evaluation and management, including an MRI. Medications: - Please take the following medications as prescribed: 1. Cefpodoxime 100mg twice a day for 3 days starting tomorrow (02/03-02/05). 2. Flagyl 500mg three times a day for 3 days. - continue with your previously prescribed home medications Please follow-up with the physicians below: - Surgery(Dr Chau): to discuss further possible surgery in the future - Gastroenterology(Dr Carlos): to discuss your gallstone, and fatty liver - Primary care doctor: to discuss your hospitalization. You may call the resident medical clinic at [facility] at [phone] to schedule an appointment with Dr. Arita. Please obtain follow-up bloodwork(1-2weeks) to check your liver enzymes. Additional instructions: - diet: adhere to a low fat diet - activity: normal activity as tolerated Please seek immediate medical evaluation or go to the Emergency Department if you experience: - severe, worsening abdominal pain; nausea, vomiting, inability to eat - fever, chills Referrals: Lizeth Carlos DO [Staff Physician] - 1 Week (Hospital follow up for cholelithiasi) Donald Chau MD [Staff Physician] - 1 Week (hospital follow up for cholelithiasis) Nicolas Nye MD [Staff Physician] - Disposition: HOME - Home Medications Comprehensive Discharge Medication List: Ambulatory Orders Amlodipine Besylate 5 mg PO DAILY 02/01/19 Cefpodoxime Proxetil [Vantin -] 100 mg PO BID #6 tablet 02/02/19 metroNIDAZOLE [Flagyl -] 500 mg PO TID #9 tablet 02/02/19 ATTENDING PHYSICIAN STATEMENT I saw and evaluated the patient. I reviewed the resident's note and discussed the case with the resident. I agree with the resident's findings and plan as documented. SUBJECTIVE: OBJECTIVE: ASSESSMENT AND PLAN:
== END 2019-02-02 18:03 | disposition home or self-care (01) | DRG 446 ==
LOC: JER 22:05 → JERBED 02-01 01:45 → J5S 02-01 04:59
PROVIDERS: ADMIT Internal Medicine
DX: K80.00 Calculus of gallbladder with acute cholecystitis without obstruction (principal); I10 Essential (primary) hypertension; R10.11 Right upper quadrant pain; C61 Malignant neoplasm of prostate; E66.3 Overweight; Z68.28 Body mass index [BMI] 28.0-28.9, adult
CPT/HCPCS: 36415; 71045-TC-FY; 76705-TC; 80053; 80061; 81003; 83690; 83721; 83735; 84100; 84484; 85025; 85027; 85610; 93005; 93010; 97116-GP; 97161-GP; 99285-25; J1644; J7030

== ENCOUNTER 2024-06-02 07:39 | Day surgery (SDC) | payer OTHER ==
[2024-06-01 12:55] VITALS: BMI 28.7
[2024-06-02 09:28] VITALS: RESP 18
[2024-06-02 12:06] VITALS: TEMP 97.8
[2024-06-02 12:40] VITALS: BP 117/79; PULSE 68
== END 2024-06-02 12:40 | disposition home or self-care (01) ==
LOC: JASU-ENDO 07:39
PROVIDERS: ATTEND Internal Medicine Gastroenterology
PROC: 0DBK8ZX Excision of Ascending Colon, Via Natural or Artificial Opening Endoscopic, Diagnostic (ICD-10-PCS; principal; 2024-06-02 10:30)
DX: Z12.11 Encounter for screening for malignant neoplasm of colon (principal); K63.5 Polyp of colon; K57.30 Diverticulosis of large intestine without perforation or abscess without bleeding; Z86.0100 Personal history of colon polyps, unspecified
CPT/HCPCS: 88305-TC